=== PATIENT | male | born 1945 | race African-American/Black ===

== ENCOUNTER → 2019-02-01 | Day surgery (SDC) | payer OTHER ==
[~2019-02-01] MED LIST: ASPIR 8181 MG PO; ATORVASTATIN CA40 MG PO; COLACE100 MG PO; ESCITALOPRAM OX10 MG PO; HYDRALAZINE 2525 MG PO; MIRALAX17 GM PO; NORCO 5-325 TA1 EACH PO; PROCARDIA XL90 MG PO; RENAL CAPS SOFTG1 MG PO; SYNTHROID50 MCG PO; TUMS FRESHERS200 MG PO; VITAMIN D31000 UNIT PO; ZANTAC 150MG T150 MG PO
--- NOTE | ~2019-02-01 | PROC ---
[address] [place] [address] PROCEDURE REPORT Name: NOHELIA RIVERA Room: [facility]..#: [id number] Admission: 02/01/19 Attend Phys: Lester Aragon MD Discharge: Date of : 47 Report #: [id number] THIS REPORT FOR: //name// For GI report, please see the Provation report in Perceptive 7 content. By: 05Medical Records Staff TIM /INGRIS
[2019-02-01 09:50] LABS: HEMATOCRIT 34.4 % (42.0-52.0); HEMOGLOBIN 11.4 gm/dL (14.0-18.0); MCH 30.4 pg (26.0-34.0); MCHC 33.1 g/dL (28.0-37.0); MCV 91.7 fL (80.0-100.0); MPV 7.4 fl. (7.2-11.1); RBC 3.74 mil/uL (4.50-6.00); RDW-CV 14.2 % (10.5-14.5); WBC 5.3 thou/uL (4.0-11.0)
[2019-02-01 09:59] LABS: CALCIUM 8.5 mg/dL (8.5-10.1); POTASSIUM 4.3 mmol/L (3.5-5.1)
--- NOTE | 2019-02-01 10:55 | EKG ---
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1945 Requested By: Lester Aragon Order Number: [id number] Reading MD: Rj Humphries Measurements Intervals [place] Rate: 71 P: 77 PA: 377 QRS: -31 QRSD: 89 T: 53 QT: 439 QTc: 478 Interpretive Statements Sinus rhythm Prolonged PA interval Consider left atrial enlargement Probable left ventricular hypertrophy Borderline prolonged QT interval No previous ECG available for comparison Electronically Signed On 02-01-2019 10:55:08 CDT by Rj Humphries [email or web address] <ELECTRONICALLY SIGNED> By: Rj Humphries MD, [facility] 02/01/19 1055 0939 Rj Humphries MD, FAC /EPI
--- NOTE | 2019-02-04 16:06 | PATH ---
[address] [address] PATHOLOGY RPT PROCEDURE Name: NOHELIA CATALAN Room: [facility] M.R.#: [id number] Admission: 02/01/19 Date of : 47 Discharge: Report #: [id number] Path Case #: [id number] [facility] Accession Number: [id number] . 01 Material submitted: . colon - TRANSVERSE COLON BIOPSY. Modifiers: transverse . 01 Clinical history: . Colon screening . 02 Diagnosis: Transverse colon biopsy polyp: - Polypoid granulation tissue and scant benign colonic mucosa suggesting hyperplastic changes, negative for granulomas, viral inclusions and dysplasia/adenomatous change. (RASHEED:barney; 02/04/2019) MBR/02/04/2019 . 02 Electronically signed: . Ji Chapin MD, Pathologist NPI- [id number] . 01 Gross description: . Received in formalin labeled "Nohelia Catalan, transverse colon biopsy polyp," is a single segment of martin soft tissue measuring 0.4 cm in maximum dimension. The specimen is entirely submitted in cassette A1. (TSD; 02/01/2019) TOB/TOB . 02 Pathologist provided ICD-10: Z12.11 . 02 CPT . 870861 Specimen Comment: A courtesy copy of this report has been sent to Specimen Comment: [phone], . Specimen Comment: Report sent to / DR REZA Performed at: [address], [place] [id number] MD Chintan Gilbert MD Phone: [phone] Performed at: 02 [facility] [address], [place], [place] [id number] MD Ji Chapin MD Phone: [phone]
== END | disposition home or self-care (01) ==
LOC: M.SUR 06:32
PROVIDERS: Internal Medicine Gastroenterology
DX: Z12.11 Encounter for screening for malignant neoplasm of colon (principal); K63.5 Polyp of colon; K64.8 Other hemorrhoids; I12.0 Hypertensive chronic kidney disease with stage 5 chronic kidney disease or end stage renal disease; E11.22 Type 2 diabetes mellitus with diabetic chronic kidney disease; N18.6 End stage renal disease; E78.5 Hyperlipidemia, unspecified; E03.9 Hypothyroidism, unspecified; K21.9 Gastro-esophageal reflux disease without esophagitis; Z98.890 Other specified postprocedural states; Z79.899 Other long term (current) drug therapy; Z99.2 Dependence on renal dialysis; Z79.4 Long term (current) use of insulin; Z79.82 Long term (current) use of aspirin

== ENCOUNTER 2020-02-19 10:58 | Emergency (ER) | payer OTHER ==
[~2020-02-19] VITALS: Ht 170.2 cm; Wt 61.4 kg
[2020-02-19 12:32] VITALS: BP 128/65
== END 2020-02-19 12:33 | disposition home or self-care (01) ==
LOC: M.ERS 10:58
DX: S00.03XA Contusion of scalp, initial encounter (principal); S00.01XA Abrasion of scalp, initial encounter; I12.0 Hypertensive chronic kidney disease with stage 5 chronic kidney disease or end stage renal disease; N18.6 End stage renal disease; E78.5 Hyperlipidemia, unspecified; K21.9 Gastro-esophageal reflux disease without esophagitis; F32.9 Major depressive disorder, single episode, unspecified; E03.9 Hypothyroidism, unspecified; Z99.2 Dependence on renal dialysis; Z79.82 Long term (current) use of aspirin; Z79.899 Other long term (current) drug therapy; V49.60XA Unspecified car occupant injured in collision with unspecified motor vehicles in traffic accident, initial encounter; Y93.89 Activity, other specified; Y92.89 Other specified places as the place of occurrence of the external cause; Y99.8 Other external cause status

== ENCOUNTER 2020-05-15 09:03 | Inpatient (IN) | payer OTHER ==
[~2020-05-15] VITALS: Ht 170.2 cm; Wt 65.3 kg
[2020-05-15 09:11] VITALS: BP 141/73
[2020-05-15] MEDS ORDERED: DIPHENOXYLATE W60 M1 PO (09:21)
[2020-05-15 09:38] LABS: ABSOLUTE BASOPHILS 0.1 thou/uL (0.0-0.2); ABSOLUTE EOSINOPHILS 0.3 thou/uL (0.0-0.7); ABSOLUTE LYMPHOCYTES 1.3 thou/uL (0.8-5.3); ABSOLUTE MONOCYTES 0.2 thou/uL (0.0-1.2); ABSOLUTE NEUTROPHILS 2.5 thou/uL (1.6-8.1); BASOPHILS 1.3 %; EOSINOPHILS 7.1 %; HEMATOCRIT 38.9 % (42.0-52.0); HEMOGLOBIN 13.2 gm/dL (14.0-18.0); MCV 94.2 fL (80.0-100.0); MONOCYTES 5.7 %; MPV 7.9 fl. (7.2-11.1); NUCLEATED RBCS 0 /100WBC; PLATELET COUNT* 192 thou/uL (150-400); POLYS 56.9 %; RBC 4.13 mil/uL (4.50-6.00); RDW-CV 14.1 % (10.5-14.5); WBC 4.4 thou/uL (4.0-11.0)
[2020-05-15 09:48] LABS: APTT 27.3 Seconds (25.0-31.3); CALCIUM 7.7 mg/dL (8.5-10.1); CREATININE 7.7 mg/dL (0.6-1.3); POTASSIUM 4.4 mmol/L (3.5-5.1); PROTIME 10.8 Seconds (9.20-11.50)
[2020-05-15 10:01] LABS: TOTAL BILIRUBIN 0.4 mg/dL (<0.1-1.0); TOTAL PROTEIN 8.2 g/dL (6.4-8.2)
[2020-05-15 12:43] VITALS: BP 155/67
[2020-05-15 14:11] VITALS: BP 185/91
--- NOTE | 2020-05-15 15:02 | EKG ---
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1945 Requested By: Torin Ham Order Number: [id number] MD: Rj Humphries Measurements Intervals [place] Rate: 77 P: 0 OR: 274 QRS: -45 QRSD: 86 T: 90 QT: 440 QTc: 499 Interpretive Statements Second degree AV block, Mobitz I Left anterior fascicular block Anteroseptal infarct, old Baseline wander in lead(s) II,III,aVF,V2,V4 Compared to ECG 02/01/2019 second degree av block noted Electronically Signed On 05-15-2020 15:02:26 CDT by Rj Humphries [email or web address] <ELECTRONICALLY SIGNED> By: jR Humphries MD, [facility] 05/15/20 1502 6 6 Rj Humphries MD, [facility] /EPI
--- NOTE | 2020-05-15 17:09 | 2DMMODE ---
[place] [address] 2 D/M-MODE ECHOCARDIOGRAM Name: NOHELIA RIVERA Room: [address] Joni#: [id number] Admission: 05/15/20 Attend Phys: Td Glover Discharge: Date of : 47 Date of Service: 05/15/20 1709 Report #: [id number] THIS REPORT FOR: cc: Chintan Leone,Chintan Fernandez,Rj Dougherty MD [facility] ~ APPROVED REPORT Study performed: 05/15/2020 14:04:39 EXAM: Comprehensive 2D, Doppler, and color-flow Echocardiogram Patient Location: In-Patient Room #: [facility] Status: routine BSA: 1.70 HR: 70 bpm BP: 155/67 mmHg Other Information Study Quality: Good Indications Syncope 2D Dimensions IVSd: 12.89 (7-11mm) LVOT Diam: 20.07 (18-24mm) LVDd: 33.29 mm PWd: 11.23 (7-11mm) Ascending Ao: 34.48 (22-36mm) LVDs: 21.74 (25-40mm) Aortic Root: 32.67 mm Volumes Left Atrial Volume (Systole) LA ESV Index: 36.60 mL/m2 Aortic Valve AoV Peak Jesse.: 0.86 m/s AO Peak Gr.: 2.98 mmHg LVOT Max P.28 mmHg AO Mean Gr.: 1.59 mmHg LVOT Mean P.15 mmHg LVOT Max V: 0.75 m/s AO V2 VTI: 15.11 cm LVOT Mean V: 0.49 m/s NAM (VTI): 3.35 cm2 LVOT V1 VTI: 16.02 [place] [address] 2 D/M-MODE ECHOCARDIOGRAM Name: NOHELIA RIVERA Room: [address]#: [id number] Admission: 05/15/20 Attend Phys: Td Glover Discharge: Date of : 47 Date of Service: 05/15/20 1709 Report #: [id number] PV Peak Jesse.: 0.78 m/s PV Peak Gr.: 2.45 mmHg Tricuspid Valve RAP Estimate: 5.00 mmHg TR Peak Gr.: 21.91 mmHg RVSP: 26.00 mmHg PA Pressure: 26.00 mmHg Left Ventricle The left ventricle is normal size. There is normal LV segmental wall motion. Mild concentric left ventricular hypertrophy. Left ventricular systolic function is normal. The left ventricular ejection fraction is within the normal range. LVEF is 60-65%. This study is not technically sufficient to allow evaluation of the LV diastolic function due to heart rhythm. Right Ventricle The right ventricle is normal size. The right ventricular systolic function is normal. Atria Left atrium is mildly dilated. The right atrium size is normal. Aortic Valve Mild aortic valve sclerosis. No aortic regurgitation is present. There is no aortic valvular stenosis. Mitral Valve The mitral valve is normal in structure. There is no mitral valve regurgitation noted. No evidence of mitral valve stenosis. Tricuspid Valve The tricuspid valve is normal in structure. Trace tricuspid regurgitation. No pulmonary hypertension. Pulmonic Valve The pulmonary valve is normal in structure. There is no pulmonic valvular regurgitation. Great Vessels The aortic root is normal in size. IVC is normal in size and collapses >50% with inspiration. Pericardium There is [place] [address] 2 D/M-MODE ECHOCARDIOGRAM Name: NOHELIA RIVERA Room: [address] Joni#: [id number] Admission: 05/15/20 Attend Phys: Td Glover Discharge: Date of : 47 Date of Service: 05/15/201708 Report #: [id number] <Conclusion> Mild concentric left ventricular hypertrophy. LVEF is 60-65%. Left atrium is mildly dilated. Mild aortic valve sclerosis. <ELECTRONICALLY SIGNED> By: Rj Humhpries MD, [facility] 05/15/201708 08 08 Rj Humphries MD, FACC /INF
[2020-05-15 18:13] VITALS: BP 155/83
[2020-05-15 19:40] VITALS: BP 131/57
[2020-05-16] VITALS (7 sets, daily range): BP systolic 90–143; BP diastolic 54–73
[2020-05-16 04:58] LABS: ABSOLUTE BASOPHILS 0.1 thou/uL (0.0-0.2); ABSOLUTE EOSINOPHILS 0.3 thou/uL (0.0-0.7); ABSOLUTE LYMPHOCYTES 1.8 thou/uL (0.8-5.3); ABSOLUTE MONOCYTES 0.4 thou/uL (0.0-1.2); ABSOLUTE NEUTROPHILS 2.7 thou/uL (1.6-8.1); EOSINOPHILS 6.7 %; HEMATOCRIT 36.8 % (42.0-52.0); HEMOGLOBIN 12.4 gm/dL (14.0-18.0); LYMPHOCYTES 33.4 %; MCH 31.7 pg (26.0-34.0); MCHC 33.7 g/dL (28.0-37.0); MCV 94.1 fL (80.0-100.0); MONOCYTES 7.4 %; MPV 8.6 fl. (7.2-11.1); NUCLEATED RBCS 0 /100WBC; PLATELET COUNT* 164 thou/uL (150-400); POLYS 51.5 %; RBC 3.91 mil/uL (4.50-6.00); RDW-CV 14.1 % (10.5-14.5); WBC 5.3 thou/uL (4.0-11.0)
[2020-05-16 05:18] LABS: ALBUMIN 3.4 g/dL (3.4-5.0); CALCIUM 7.9 mg/dL (8.5-10.1); POTASSIUM 4.4 mmol/L (3.5-5.1); TOTAL BILIRUBIN 0.4 mg/dL (<0.1-1.0); TOTAL PROTEIN 7.1 g/dL (6.4-8.2)
[2020-05-16 05:35] LABS: CREATININE 5.6 mg/dL (0.6-1.3)
[2020-05-17] VITALS (9 sets, daily range): BP systolic 102–148; BP diastolic 51–86
[2020-05-17 05:52] LABS: ABSOLUTE BASOPHILS 0.1 thou/uL (0.0-0.2); ABSOLUTE EOSINOPHILS 0.2 thou/uL (0.0-0.7); ABSOLUTE LYMPHOCYTES 1.8 thou/uL (0.8-5.3); ABSOLUTE MONOCYTES 0.4 thou/uL (0.0-1.2); ABSOLUTE NEUTROPHILS 3.9 thou/uL (1.6-8.1); BASOPHILS 1.3 %; EOSINOPHILS 3.7 %; HEMATOCRIT 36.5 % (42.0-52.0); HEMOGLOBIN 12.4 gm/dL (14.0-18.0); LYMPHOCYTES 27.9 %; MCH 31.7 pg (26.0-34.0); MCV 93.2 fL (80.0-100.0); MONOCYTES 5.6 %; MPV 8.5 fl. (7.2-11.1); NUCLEATED RBCS 0 /100WBC; PLATELET COUNT* 177 thou/uL (150-400); POLYS 61.5 %; RBC 3.92 mil/uL (4.50-6.00); RDW-CV 13.7 % (10.5-14.5); WBC 6.4 thou/uL (4.0-11.0)
[2020-05-17 06:13] LABS: ALBUMIN 3.4 g/dL (3.4-5.0); CALCIUM 7.8 mg/dL (8.5-10.1); TOTAL BILIRUBIN 0.4 mg/dL (<0.1-1.0); TOTAL PROTEIN 7.1 g/dL (6.4-8.2)
[2020-05-17 06:15] LABS: CREATININE 7.5 mg/dL (0.6-1.3)
[2020-05-18] VITALS (10 sets, daily range): BP systolic 062–162; BP diastolic 56–85
[2020-05-18 04:48] LABS: ABSOLUTE BASOPHILS 0.1 thou/uL (0.0-0.2); ABSOLUTE EOSINOPHILS 0.1 thou/uL (0.0-0.7); ABSOLUTE MONOCYTES 0.4 thou/uL (0.0-1.2); ABSOLUTE NEUTROPHILS 5.1 thou/uL (1.6-8.1); BASOPHILS 1.1 %; EOSINOPHILS 1.5 %; HEMATOCRIT 35.7 % (42.0-52.0); HEMOGLOBIN 12.3 gm/dL (14.0-18.0); LYMPHOCYTES 14.7 %; MCH 32.1 pg (26.0-34.0); MCHC 34.4 g/dL (28.0-37.0); MCV 93.4 fL (80.0-100.0); MONOCYTES 6.2 %; MPV 8.5 fl. (7.2-11.1); NUCLEATED RBCS 0 /100WBC; PLATELET COUNT* 190 thou/uL (150-400); POLYS 76.5 %; RBC 3.83 mil/uL (4.50-6.00); WBC 6.6 thou/uL (4.0-11.0)
[2020-05-18 04:59] LABS: ALBUMIN 3.4 g/dL (3.4-5.0); CALCIUM 7.4 mg/dL (8.5-10.1); POTASSIUM 4.9 mmol/L (3.5-5.1); TOTAL BILIRUBIN 0.4 mg/dL (<0.1-1.0); TOTAL PROTEIN 7.1 g/dL (6.4-8.2)
[2020-05-18 05:10] LABS: CREATININE 8.6 mg/dL (0.6-1.3)
[2020-05-18] MEDS ORDERED: MIDODRINE HCL 55 M1 PO ×2 (08:32→13:33)
[2020-05-18] MEDS ORDERED: HYDRALAZINE 2525 MG PO ×2 (08:32→13:33)
--- NOTE | 2020-05-18 14:39 | CON ---
[address] [address] CONSULTATION Name: NOHELIA RIVERA Room: [address] IN M.R.#: [id number] Admission: 05/16/20 Attend Phys: Caitlyn Jones Discharge: Date of : 47 Report #: [id number] THIS REPORT FOR: //name// cc: Chintan Leone Russell J. DO ~ THIS REPORT FOR: //name// CC: Chintan Glover NEPHROLOGY CONSULTATION CONSULTING PHYSICIAN: Td Glover DO REASON FOR CONSULTATION: End-stage kidney disease. HISTORY OF PRESENT ILLNESS: A 74-year-old gentleman admitted with a fainting spell. He had a similar spell last week. Today it happened before he had any dialysis. He was scheduled for dialysis later this afternoon. He has had some similar episode in the past. He did not miss a meal and did not have any recent changes to his medications that he recalls. He did not suffer any injury or fall as a result of this. Appears to be comfortable at present time and does not have any complaints. Cardiology has been consulted. REVIEW OF SYSTEMS: Constitutional, psych, heme, eyes, ENT, respiratory, cardiac, GI, , endocrine, all negative except as documented above. PAST MEDICAL HISTORY: End-stage kidney disease, on hemodialysis Monday, Monday and Monday. He has been hospitalized previously at [facility], dyslipidemia, hypertension, hypothyroidism, GERD, depression. FAMILY HISTORY: Not pertinent in this 74-year-old gentleman. SOCIAL HISTORY: No tobacco. CURRENT MEDICATIONS: Reviewed. PHYSICAL EXAMINATION: VITAL SIGNS: Blood pressure 134/51, pulse 50, respirations 16, temperature 36.3. GENERAL: No acute distress. EYES: Open. EARS: Externally normal. NECK: Supple. CARDIOVASCULAR: Bradycardic. LUNGS: Diminished breath sounds. ABDOMEN: [place] [address] CONSULTATION Name: NOHELIA RIVERA Room: [address] IN [facility].#: [id number] Admission: 05/16/20 Attend Phys: Caitlyn Jones Discharge: Date of : 47 Report #: [id number] MUSCULOSKELETAL: Nontender. PSYCHIATRIC: Awake, alert. LABORATORY DATA: White cell count 4.4, hemoglobin 13.2, platelets 192. Sodium 136, potassium 4.4, chloride 97, bicarbonate 30, BUN 56, creatinine 7.7, glucose 152, calcium 7.7, albumin 4. ASSESSMENT: 1. End-stage kidney disease, on hemodialysis Monday, Monday and Monday at the [facility]. 2. Syncopal episode. 3. Dyslipidemia. 4. History of hypertension. 5. Vitamin D deficiency. PLAN: We will perform maintenance dialysis today. Cardiology evaluation has been ordered to evaluate for possible causes of his syncopal episode. We will follow for dialysis needs and continue with maintenance dialysis. Please call with any questions in the interim. Thank you for requesting my opinion in the care and management of this patient. <ELECTRONICALLY SIGNED> By: Yrn Bob MD 05/18/20 1439 1121 [id number] oBb MD /nt
[2020-05-19] VITALS: BP 107/54
[2020-05-19 04:00] VITALS: BP 106/66
[2020-05-19 08:02] VITALS: BP 122/80
[2020-05-19] MEDS ORDERED: MIDODRINE HCL10 MG PO (09:23)
[2020-05-19 12:31] VITALS: BP 131/70; BP 95/61; BP 97/57
== END 2020-05-19 13:04 | disposition home or self-care (01) | DRG 73 ==
LOC: M.ERS 09:03 → M.TBA-ER 09:55 → M.2W 09:55
PROVIDERS: Family Medicine; ADMIT Internal Medicine; ATTEND Internal Medicine
PROC: 5A1D70Z Performance of Urinary Filtration, Intermittent, Less than 6 Hours Per Day (ICD-10-PCS; principal; 2020-05-16)
PROC: 5A1D70Z Performance of Urinary Filtration, Intermittent, Less than 6 Hours Per Day (ICD-10-PCS; 2020-05-18)
DX: G90.9 Disorder of the autonomic nervous system, unspecified (principal); N18.6 End stage renal disease; I13.2 Hypertensive heart and chronic kidney disease with heart failure and with stage 5 chronic kidney disease, or end stage renal disease; I50.32 Chronic diastolic (congestive) heart failure; I44.1 Atrioventricular block, second degree; K21.9 Gastro-esophageal reflux disease without esophagitis; I95.1 Orthostatic hypotension; E11.22 Type 2 diabetes mellitus with diabetic chronic kidney disease; E11.43 Type 2 diabetes mellitus with diabetic autonomic (poly)neuropathy; E55.9 Vitamin D deficiency, unspecified; F32.9 Major depressive disorder, single episode, unspecified; E03.9 Hypothyroidism, unspecified; E78.5 Hyperlipidemia, unspecified; Z20.828 Contact with and (suspected) exposure to other viral communicable diseases; Z79.82 Long term (current) use of aspirin; Z79.899 Other long term (current) drug therapy; Z99.2 Dependence on renal dialysis

== ENCOUNTER 2020-05-25 08:38 | Inpatient (IN) | payer OTHER ==
[~2020-05-25] VITALS: Ht 170.2 cm; Wt 65.3 kg
[~2020-05-25 08:38] MED LIST changes: +DIPHENOXYLATE W60 M1 PO; +MIDODRINE HCL 55 M1 PO; +MIDODRINE HCL10 MG PO
[2020-05-25 08:47] VITALS: BP 163/91
[2020-05-25 09:46] LABS: ABSOLUTE BASOPHILS 0.1 thou/uL (0.0-0.2); ABSOLUTE EOSINOPHILS 0.3 thou/uL (0.0-0.7); ABSOLUTE LYMPHOCYTES 1.6 thou/uL (0.8-5.3); ABSOLUTE MONOCYTES 0.3 thou/uL (0.0-1.2); ABSOLUTE NEUTROPHILS 4.8 thou/uL (1.6-8.1); BASOPHILS 0.9 %; EOSINOPHILS 3.7 %; HEMATOCRIT 37.8 % (42.0-52.0); HEMOGLOBIN 12.8 gm/dL (14.0-18.0); LYMPHOCYTES 23.2 %; MCH 32.2 pg (26.0-34.0); MCHC 33.8 g/dL (28.0-37.0); MCV 95.2 fL (80.0-100.0); MONOCYTES 4.8 %; MPV 7.5 fl. (7.2-11.1); NUCLEATED RBCS 0 /100WBC; PLATELET COUNT* 244 thou/uL (150-400); POLYS 67.4 %; RBC 3.97 mil/uL (4.50-6.00); RDW-CV 13.8 % (10.5-14.5); WBC 7.1 thou/uL (4.0-11.0)
[2020-05-25 09:54] LABS: CALCIUM 8.9 mg/dL (8.5-10.1); CREATININE 9.1 mg/dL (0.6-1.3); POTASSIUM 5.2 mmol/L (3.5-5.1)
[2020-05-25 10:04] LABS: ALBUMIN 3.6 g/dL (3.4-5.0); TOTAL BILIRUBIN 0.5 mg/dL (<0.1-1.0); TOTAL PROTEIN 7.7 g/dL (6.4-8.2)
[2020-05-25 10:39] LABS: APTT 27.5 Seconds (25.0-31.3); INR 1.1; PROTIME 11.4 Seconds (9.20-11.50)
[2020-05-25 14:00] VITALS: BP 151/97
--- NOTE | 2020-05-25 15:03 | EKG ---
[place] [address] ELECTROCARDIOGRAM REPORT Name: NOHELIA RIVERA Room: [place] [address] ADM IN [facility].#: [id number] Admission: 05/25/20 Attend Phys: Td Glover Discharge: Date of : 47 Date of Service: 05/25/20 0900 Report #: [id number] THIS REPORT FOR: //name// [facility] ED Test Date: 2020-05-25 Test Time: 09:00:53 Pat Name: NOHELIA RIVERA Department: Room: [facility] Gender: M Lan Analyst: CCD : 1945 Requested By: William Aviles Order Number: [id number] MD: Wilian Iqbal Measurements Intervals [place] Rate: 85 P: 0 ME: 133 QRS: -59 QRSD: 84 T: 66 QT: 436 QTc: 519 Interpretive Statements Sinus rhythm with first-degree AV block with occasional blocked P wave Left anterior fascicular block Anteroseptal infarct, age indeterminate Prolonged QT interval Compared to ECG 05/15/2020 09:07:01 Blocked P waves are less frequent Prolonged QT interval now present Myocardial infarct finding still present Electronically Signed On 05-25-2020 15:03:31 CDT by Wilian Iqbal [email or web address] <ELECTRONICALLY SIGNED> By: Wilian Iqbal MD, [facility] 05/25/20 1503 9 09 Wilian Iqbal MD, [facility] /EPI
[2020-05-25 15:36] VITALS: BP 211/106
[2020-05-25 20:00] VITALS: BP 137/70
[2020-05-26 00:30] VITALS: BP 110/58
[2020-05-26 02:06] LABS: GLYCOHEMOGLOBIN (HGB A1C) 5.5 % (4.8-5.6)
[2020-05-26 04:30] VITALS: BP 114/64
[2020-05-26 05:12] LABS: ABSOLUTE BASOPHILS 0.1 thou/uL (0.0-0.2); ABSOLUTE EOSINOPHILS 0.2 thou/uL (0.0-0.7); ABSOLUTE LYMPHOCYTES 1.5 thou/uL (0.8-5.3); ABSOLUTE MONOCYTES 0.3 thou/uL (0.0-1.2); ABSOLUTE NEUTROPHILS 2.9 thou/uL (1.6-8.1); BASOPHILS 1.8 %; HEMATOCRIT 37.5 % (42.0-52.0); LYMPHOCYTES 28.9 %; MCH 32.3 pg (26.0-34.0); MCHC 34.8 g/dL (28.0-37.0); MCV 92.8 fL (80.0-100.0); MONOCYTES 6.6 %; MPV 7.5 fl. (7.2-11.1); NUCLEATED RBCS 0 /100WBC; PLATELET COUNT* 245 thou/uL (150-400); POLYS 57.7 %; RBC 4.04 mil/uL (4.50-6.00); RDW-CV 13.9 % (10.5-14.5)
--- NOTE | 2020-05-26 05:15 | NUR ---
PT ADMITTED TO FLOOR FROM DIALYSIS HE REQUIRED TREATMENT DIRECTLY FROM ER. ASSESSMENTS COMPLETED AT BEDSIDE, PLEASE REFER TO CHARTING FOR DETAILS. MEDICATIONS ADMINISTERED PER MAR. PT IS A HIGH FALL RISK D/T RECENT FALLS AND HAS BEEN PLACED ON BEDREST. BED ALARM IS ON AND CALL LIGHT WITHIN REACH. HOURLY ROUNDING IN PLACE FOR PT SAFETY. NO C/O PAIN OR DISCOMFORT NOTED.
[2020-05-26 05:32] LABS: CHOLESTEROL 153 mg/dL (<200); HDL CHOLESTEROL 35 mg/dL (>40); LDL CHOLESTEROL 102 mg/dL (<100); TC:HDL 4.4 Ratio (Not establshd); TRIGLYCERIDE 82 mg/dL (<150); VLDL 16 mg/dL (<40)
[2020-05-26 05:33] LABS: ALBUMIN 3.4 g/dL (3.4-5.0); CALCIUM 8.7 mg/dL (8.5-10.1); POTASSIUM 4.3 mmol/L (3.5-5.1); SERUM ASSESSMENT Clear; TOTAL BILIRUBIN 0.4 mg/dL (<0.1-1.0); TOTAL PROTEIN 7.6 g/dL (6.4-8.2)
[2020-05-26 05:40] LABS: CREATININE 6.2 mg/dL (0.6-1.3)
--- NOTE | 2020-05-26 09:47 | NUR ---
cm completed initial assessment to discuss d/c planning. cm reviewed chart: pt uses [facility], MWF seat time. Pt has 0 hx w/snf or hh. pt lives at [facility] in independent living per Nicole (front desk administrator). [facility] is able to provide transortation need be. pt stated he has a walker. pt stated he "used o be active...not as much." cm to cont to follow.
--- NOTE | 2020-05-26 11:32 | NUR ---
REPORT GIVEN TO CIRO ODEN
[2020-05-26 12:11] VITALS: BP 121/69
--- NOTE | 2020-05-26 14:08 | NUR ---
Cardiac Rehab. Stroke education completed with receptive patient and daughter using the Stroke patient education folder. Discussed were signs and symptoms of stroke, when to call 911, using the word Stroke when talking with sweep press operator, personal risk factor reduction. All questions answered to patient and daughter's satisfaction.
--- NOTE | 2020-05-26 14:59 | 2DMMODE ---
[place] [address] 2 D/M-MODE ECHOCARDIOGRAM Name: NOHELIA RIVERA Room: [address] IN [facility]#: [id number] Admission: 05/25/20 Attend Phys: Td Glover Discharge: Date of : 47 Date of Service: 05/26/20 1458 Report #: [id number] THIS REPORT FOR: cc: Chintan Leone Russell J. DO Liston, Michael J. MD [facility] ~ APPROVED REPORT Study performed: 05/26/2020 11:10:40 EXAM: Limited 2D Echocardiogram Patient Location: In-Patient Room #: 220 Status: routine BSA: 1.71 HR: 62 bpm BP: 114/64 mmHg Rhythm: NSR Other Information Study Quality: Good Indications CVA/TIA Echo Enhancing Agent Indication: Rule out Shunt Agent(s) / Amount(s) Used: Agitated Saline 10 cc Left Ventricle The left ventricle is normal size. There is normal LV segmental wall motion. Mild concentric left ventricular hypertrophy. The left ventricular systolic function is normal. LVEF is 65-70%. Right Ventricle The right ventricle is normal size. The right ventricular systolic function is normal. Atria The left atrium size is normal. The interatrial septum is intact with no evidence for an atrial septal defect. The right atrium size is normal. Aortic Valve [place] [address] 2 D/M-MODE ECHOCARDIOGRAM Name: NOHELIA RIVERA Room: [address] IN .R.#: [id number] Admission: 05/25/20 Attend Phys: Td Glover Discharge: Date of : 47 Date of Service: 05/26/20 1458 Report #: [id number] Mitral Valve The mitral valve is normal in structure. Tricuspid Valve The tricuspid valve is normal in structure. Pulmonic Valve The pulmonary valve is normal in structure. Great Vessels The aortic root is normal in size. IVC is normal in size and collapses >50% with inspiration. Pericardium There is no pericardial effusion. <Conclusion> The left ventricle is normal size. Mild concentric left ventricular hypertrophy. The left ventricular systolic function is normal. LVEF is 65-70%. The interatrial septum is intact with no evidence for an atrial septal defect. Mild aortic valve sclerosis. IVC is normal in size and collapses >50% with inspiration. <ELECTRONICALLY SIGNED> By: Paulo [place] MD, [facility] 05/26/20 1458 1458 1458 Paulo Hernandez MD, FACC /INF
[2020-05-26 15:57] VITALS: BP 150/61
[2020-05-26 20:00] VITALS: BP 150/57
[2020-05-27] VITALS: BP 123/63
[2020-05-27 04:00] VITALS: BP 141/88
--- NOTE | 2020-05-27 04:33 | NUR ---
ASSESSMENT COMPLETED AT BEDSIDE, PLEASE REFER TO CHARTING FOR DETAILS. MEDICATIONS ADMINISTERED PER MAR. NO C/O PAIN OR DISCOMFORT REPORTED BY PT. HR IN 40'S WHILE PT ASLEEP.HOURLY ROUNDING IN PLACE FOR SAFETY, CALL LIGHT WITHIN REACH.
[2020-05-27 05:22] LABS: ABSOLUTE BASOPHILS 0.1 thou/uL (0.0-0.2); ABSOLUTE EOSINOPHILS 0.3 thou/uL (0.0-0.7); ABSOLUTE LYMPHOCYTES 2.3 thou/uL (0.8-5.3); ABSOLUTE MONOCYTES 0.4 thou/uL (0.0-1.2); ABSOLUTE NEUTROPHILS 2.7 thou/uL (1.6-8.1); BASOPHILS 1.2 %; EOSINOPHILS 5.6 %; LYMPHOCYTES 39.6 %; MCH 32.2 pg (26.0-34.0); MCHC 34.3 g/dL (28.0-37.0); MCV 93.9 fL (80.0-100.0); MONOCYTES 6.6 %; MPV 7.5 fl. (7.2-11.1); NUCLEATED RBCS 0 /100WBC; PLATELET COUNT* 249 thou/uL (150-400); RBC 3.73 mil/uL (4.50-6.00); RDW-CV 13.8 % (10.5-14.5); WBC 5.8 thou/uL (4.0-11.0)
[2020-05-27 05:50] LABS: ALBUMIN 3.3 g/dL (3.4-5.0); CALCIUM 8.3 mg/dL (8.5-10.1); POTASSIUM 4.6 mmol/L (3.5-5.1); TOTAL BILIRUBIN 0.3 mg/dL (<0.1-1.0); TOTAL PROTEIN 7.1 g/dL (6.4-8.2)
[2020-05-27 05:52] LABS: CREATININE 7.7 mg/dL (0.6-1.3)
[2020-05-27 08:00] VITALS: BP 169/91
[2020-05-27 10:43] VITALS: BP 169/91
[2020-05-27 12:59] VITALS: BP 157/83
[2020-05-27 20:00] VITALS: BP 116/68
[2020-05-28] VITALS: BP 111/63
[2020-05-28 04:00] VITALS: BP 120/70
[2020-05-28 08:00] VITALS: BP 154/87
[2020-05-28 11:24] VITALS: BP 119/73
[2020-05-28 16:32] VITALS: BP 171/84
--- NOTE | 2020-05-28 18:46 | CON ---
[address] [address] CONSULTATION Name: NOHELIA RIVERA Room: [address] IN M.R.#: [id number] Admission: 05/25/20 Attend Phys: Caitlyn Jones Discharge: Date of : 47 Report #: [id number] THIS REPORT FOR: //name// cc: Chintan Leone Russell J. DO ~ THIS REPORT FOR: //name// CC: Chintan Glover DATE OF SERVICE: 05/25/2020 HISTORY OF PRESENT ILLNESS: This is a 74-year-old male patient who was seen by me in Emergency Room. I talked to Dr. Aviles, the Emergency Room physician and this patient is admitted with shortness of breath. He feels weak all over the body. He had some nausea. He was in the hospital recently and those records were reviewed. REVIEW OF SYSTEMS: A 14-point review of system was carried out. This patient has end-stage renal disease and he is on dialysis. He has visual disturbances, but that is a longstanding according to the family. He is having some difficulty with swallowing because he says he says that he has sore throat. He can still move everything, but he just feels fatigued. He is not having any chest symptoms, but he is having some shortness of breath. He does have kidney failure. He does have some nausea. He does not have any significant constitutional symptoms. He denies any new musculoskeletal, dermatological, hematological, psychiatric, throat, allergic symptom associated with present symptomatology. PAST MEDICAL HISTORY: Positive for end-stage renal disease and recent admissions to the hospital. FAMILY HISTORY: Unremarkable. SOCIAL HISTORY: This patient has a supporting family. I did not ask her the relationship, but I think his daughter was there. He does not drink any alcohol. PHYSICAL EXAMINATION: His examination indicate he is alert. He can respond. His speech looks intact. His memory and fund of knowledge is somewhat diminished, but I think it is his baseline. Cranial nerve examination 2-12 was attempted. He has pretty significant visual problems, but that is his baseline. I do not think there is any other definite problems I can identify. He moves all four extremities and motor examination looks symmetrical. He says he can feel on both sides. His reflexes are diminished, but that is probably because of his end-stage renal disease. His pulses [place] [address] CONSULTATION Name: NOHELIA RIVERA Room: [address]#: [id number] Admission: 05/25/20 Attend Phys: aCitlyn Jones Discharge: Date of : 47 Report #: [id number] is mute. His cardiac examinations appear unremarkable. I did not see any marked respiratory difficulty, but he feels short of breath. I could not look at his fundus. He has no meningeal sign. He has no neck stiffness. No thyroid mass was noticed. Blood pressure is 164/97, respirations 18, pulse is 69, temperature is 97.1. LABORATORY DATA: White count is normal at 7.1. Potassium is trace high. Creatinine is 9.1 and his TSH is normal. His CT scan was done that showed a question of new stroke, but CT is not very specific and he needs an MRI. I talked to him and he has no contraindication for MRI. IMPRESSION: 1. Generalized weakness, does not appear to be from neurological etiology, but his CT scan of the head does demonstrate a new finding. I will suggest the workup of systemic problem for a cause of generalized fatigue, but I will get an MRI and MRA as an initial test to see what the MRI shows. We will follow up with you and depending upon the patient's MRI we will do further workup. That is all discussed with the patient and the family. They want to follow this plan. Thank you very much for this referral. We will follow the patient along with you. <ELECTRONICALLY SIGNED> By: Song Landry MD 05/28/20 1846 1353 1430Song Landry MD /nt
[2020-05-29] VITALS (18 sets, daily range): BP systolic 115–170; BP diastolic 51–88
[2020-05-29 05:18] LABS: ABSOLUTE BASOPHILS 0.1 thou/uL (0.0-0.2); ABSOLUTE EOSINOPHILS 0.3 thou/uL (0.0-0.7); ABSOLUTE LYMPHOCYTES 1.9 thou/uL (0.8-5.3); ABSOLUTE MONOCYTES 0.4 thou/uL (0.0-1.2); ABSOLUTE NEUTROPHILS 2.3 thou/uL (1.6-8.1); BASOPHILS 1.5 %; EOSINOPHILS 5.9 %; HEMATOCRIT 37.5 % (42.0-52.0); HEMOGLOBIN 12.8 gm/dL (14.0-18.0); LYMPHOCYTES 38.3 %; MCH 32.1 pg (26.0-34.0); MCHC 34.2 g/dL (28.0-37.0); MCV 93.8 fL (80.0-100.0); MONOCYTES 7.7 %; MPV 7.3 fl. (7.2-11.1); NUCLEATED RBCS 0 /100WBC; PLATELET COUNT* 254 thou/uL (150-400); POLYS 46.6 %; RDW-CV 13.9 % (10.5-14.5)
[2020-05-29 05:24] LABS: CALCIUM 8.3 mg/dL (8.5-10.1); CREATININE 7.8 mg/dL (0.6-1.3); POTASSIUM 4.7 mmol/L (3.5-5.1)
--- NOTE | 2020-05-29 11:08 | NUR ---
Patient attends outpatient HD at [facility] on at 10:[address] [facility].
--- NOTE | 2020-05-29 11:20 | NUR ---
CM INFORMED DURING PRIME ROUNDING OF PLAN FOR PT TO HAVE T.E.E AND DIALYSIS TODAY. PT INSURANCE AUTH STILL PENDING FOR INPT REHAB POSSIBLY TODAY. CM WILL REMAIN AVAILABLE TO ASSIST AND FOLLOW NEEDED.
[2020-05-29] MEDS ORDERED: PERCOCET 5-3251 EACH PO (11:54)
--- NOTE | 2020-05-29 17:32 | TEE ---
[place] [address] TRANSESOPHAGEAL ECHOCARDIOGRAM Name: NOHELIA RIVERA Room: [address] IN [facility]#: [id number] Admission: 05/25/20 Attend Phys: Td Glover Discharge: Date of : 47 Date of Service: 05/29/20 1732 Report #: [id number] THIS REPORT FOR: cc: Chintan Leone Russell J. DO Blick, David R. MD [facility] ~ APPROVED REPORT Study performed: 05/29/2020 09:18:03 EXAM: Transesophageal Echocardiogram Patient Location: CVL BSA: 1.76 HR: 84 bpm BP: 170/86 mmHg Other Information Study Quality: Good Indications CVA/TIA Echo Enhancing Agent Indication: Rule Out Septal Defect Agent(s) / Amount(s) Used: Agitated Saline cc Procedure After obtaining informed consent, patient underwent transesophageal echo in the [employer]. Type of Sedation : Conscious Sedation Sedation was administered by Regina Chua RN. Sedation start time: 9:40 Case end Time: 10:05 Sedation was achieved intravenously with: Transesophageal probe was inserted and advanced into esophagus without difficulty by Rj Humphries MD, FACC. Echo enhancement indication: R/O Septal defect. Echo enhancement agent administered: Agitated Saline The LURDES was performed without complications. Throughout the procedure, the blood pressure, pulse oximetry, cardiac rhythm, and rate were monitored. The patient tolerated the procedure without adverse effects. Recovery from conscious sedation was uneventful and [place] [address] TRANSESOPHAGEAL ECHOCARDIOGRAM Name: NICOLENOHELIAMIKEY MCCALLUM Room: [address] IN [facility]#: [id number] Admission: 05/25/20 Attend Phys: Td Glover Discharge: Date of : 47 Date of Service: 05/29/20 1732 Report #: [id number] Left Ventricle The left ventricle is normal size. There is normal LV segmental wall motion. Mild concentric left ventricular hypertrophy. The left ventricular systolic function is normal. The left ventricular ejection fraction is within the normal range. LVEF is 60-65%. Right Ventricle The right ventricle is normal size. The right ventricular systolic function is normal. Atria The left atrium size is normal. no thrombus noted in the left atrial appendage Injection of bubbles documented no interatrial shunt. The right atrium size is normal. Aortic Valve The Aortic valve is sclerotic. No aortic regurgitation is present. There is no aortic valvular stenosis. Mitral Valve The mitral valve is normal in structure. Mild mitral regurgitation. No evidence of mitral valve stenosis. Tricuspid Valve The tricuspid valve is normal in structure. There is no tricuspid valve regurgitation noted. Pulmonic Valve The pulmonary valve is normal in structure. There is no pulmonic valvular regurgitation. Great Vessels The aortic root is normal in size. Pericardium There is no pericardial effusion. <Conclusion> Mild concentric left ventricular hypertrophy. LVEF is 60-65%. The Aortic valve is sclerotic. The left atrium size is normal. no thrombus noted in the [place] [address] TRANSESOPHAGEAL ECHOCARDIOGRAM Name: SHERLEYMARIA INESNOHELIA Room: [address] IN [facility].#: [id number] Admission: 05/25/20 Attend Phys: Td Glover Discharge: Date of : 47 Date of Service: 05/29/201731 Report #: [id number] Mild mitral regurgitation. Injection of bubbles documented no interatrial shunt. <ELECTRONICALLY SIGNED> By: Rj Humphries MD, FACC 05/29/201731 31 31 Rj Humphries MD, FACC /INF
--- NOTE | 2020-05-29 17:52 | NUR ---
ORDER REVEIVED TO DISCHARGE TO REHAB AFTER DIALYSIS IS COMPLETED FOR THE DAY. DC TIME OF 17:55.
== END 2020-05-29 17:59 | DRG 64 ==
LOC: M.ERS 08:38 → M.2W 10:12 → M.TBA-ER 10:12 → M.2W 19:58
PROVIDERS: Emergency Medicine Emergency Medical Services; Internal Medicine Nephrology; ADMIT Internal Medicine; ATTEND Internal Medicine
PROC: 5A1D70Z Performance of Urinary Filtration, Intermittent, Less than 6 Hours Per Day (ICD-10-PCS; principal; 2020-05-27)
PROC: B24BZZ4 Ultrasonography of Heart with Aorta, Transesophageal (ICD-10-PCS; 2020-05-29)
DX: I63.89 Other cerebral infarction (principal); N18.6 End stage renal disease; I50.33 Acute on chronic diastolic (congestive) heart failure; G93.41 Metabolic encephalopathy; I13.2 Hypertensive heart and chronic kidney disease with heart failure and with stage 5 chronic kidney disease, or end stage renal disease; N39.0 Urinary tract infection, site not specified; E03.9 Hypothyroidism, unspecified; F32.9 Major depressive disorder, single episode, unspecified; K21.9 Gastro-esophageal reflux disease without esophagitis; E87.5 Hyperkalemia; E78.5 Hyperlipidemia, unspecified; E11.22 Type 2 diabetes mellitus with diabetic chronic kidney disease; D64.9 Anemia, unspecified; I65.22 Occlusion and stenosis of left carotid artery; Z20.828 Contact with and (suspected) exposure to other viral communicable diseases; Z99.2 Dependence on renal dialysis; Z79.899 Other long term (current) drug therapy; Z79.82 Long term (current) use of aspirin

== ENCOUNTER 2020-05-29 12:24 | Inpatient (IN) | payer OTHER ==
[~2020-05-29] VITALS: Ht 170.2 cm; Wt 65.3 kg
[~2020-05-29 12:24] MED LIST changes: +PERCOCET 5-3251 EACH PO
[2020-05-29 18:20] VITALS: BP 147/85
[2020-05-29 18:58] VITALS: BP 147/85
[2020-05-29 19:50] VITALS: BP 104/68
[2020-05-30 04:20] LABS: HEMATOCRIT 40.9 % (42.0-52.0); HEMOGLOBIN 13.8 gm/dL (14.0-18.0); MCH 31.6 pg (26.0-34.0); MCHC 33.8 g/dL (28.0-37.0); MCV 93.6 fL (80.0-100.0); MPV 7.2 fl. (7.2-11.1); RBC 4.37 mil/uL (4.50-6.00); RDW-CV 13.7 % (10.5-14.5); WBC 5.5 thou/uL (4.0-11.0)
[2020-05-30 04:39] LABS: CALCIUM 9.1 mg/dL (8.5-10.1); CREATININE 5.9 mg/dL (0.6-1.3)
[2020-05-30 07:00] VITALS: BP 141/88
[2020-05-30 13:04] VITALS: BP 131/76
[2020-05-30 17:30] VITALS: BP 144/84
[2020-05-30 19:55] VITALS: BP 145/74
[2020-05-31 07:50] VITALS: BP 132/75
[2020-05-31 13:03] VITALS: BP 116/76
[2020-05-31 16:55] VITALS: BP 157/67
[2020-05-31 19:55] VITALS: BP 173/92
[2020-06-01 07:30] VITALS: BP 136/76
[2020-06-01 13:10] VITALS: BP 111/72
[2020-06-01 17:44] VITALS: BP 140/80
[2020-06-01 19:30] VITALS: BP 164/86
[2020-06-02 04:51] LABS: HEMATOCRIT 35.2 % (42.0-52.0); HEMOGLOBIN 12.1 gm/dL (14.0-18.0); MCHC 34.3 g/dL (28.0-37.0); MCV 93.4 fL (80.0-100.0); MPV 7.5 fl. (7.2-11.1); RBC 3.77 mil/uL (4.50-6.00); RDW-CV 14.2 % (10.5-14.5); WBC 5.7 thou/uL (4.0-11.0)
[2020-06-02 05:08] LABS: ALBUMIN 3.5 g/dL (3.4-5.0); CALCIUM 8.8 mg/dL (8.5-10.1); MAGNESIUM 1.8 mg/dL (1.8-2.4); PHOSPHORUS* 2.2 mg/dL (2.5-4.9); POTASSIUM 5.1 mmol/L (3.5-5.1)
[2020-06-02 05:16] LABS: CREATININE 10.1 mg/dL (0.6-1.3)
[2020-06-02 07:54] VITALS: BP 135/74
[2020-06-02 21:55] VITALS: BP 154/86
[2020-06-03 07:00] VITALS: BP 120/66
[2020-06-03 19:00] VITALS: BP 112/67
[2020-06-03 22:06] LABS: HEPATITIS B SURFACE AG Negative (Negative)
[2020-06-04 11:05] LABS: ABSOLUTE BASOPHILS 0.1 thou/uL (0.0-0.2); ABSOLUTE EOSINOPHILS 0.2 thou/uL (0.0-0.7); ABSOLUTE LYMPHOCYTES 1.5 thou/uL (0.8-5.3); ABSOLUTE MONOCYTES 0.5 thou/uL (0.0-1.2); ABSOLUTE NEUTROPHILS 4.7 thou/uL (1.6-8.1); BASOPHILS 1.2 %; EOSINOPHILS 2.8 %; HEMATOCRIT 36.8 % (42.0-52.0); HEMOGLOBIN 12.3 gm/dL (14.0-18.0); MCH 31.8 pg (26.0-34.0); MCHC 33.5 g/dL (28.0-37.0); MONOCYTES 7.7 %; MPV 7.1 fl. (7.2-11.1); NUCLEATED RBCS 0 /100WBC; PLATELET COUNT* 274 thou/uL (150-400); POLYS 67.3 %; RBC 3.87 mil/uL (4.50-6.00); RDW-CV 13.8 % (10.5-14.5)
[2020-06-04 11:19] LABS: ALBUMIN 3.7 g/dL (3.4-5.0); CALCIUM 8.5 mg/dL (8.5-10.1); POTASSIUM 4.3 mmol/L (3.5-5.1); TOTAL BILIRUBIN 0.3 mg/dL (<0.1-1.0); TOTAL PROTEIN 7.6 g/dL (6.4-8.2)
[2020-06-04 11:23] LABS: CREATININE 5.5 mg/dL (0.6-1.3)
--- NOTE | 2020-06-04 16:18 | EKG ---
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: : 1945 Requested By: Nate Boyer Order Number: [id number] MD: Wilian Iqbal Measurements Intervals [employer] Rate: 87 P: NV: QRS: -54 QRSD: 87 T: 75 QT: 402 QTc: 484 Interpretive Statements Accelerated junctional rhythm Left anterior fascicular block Anteroseptal infarct, old possible Compared to ECG 05/25/2020 09:00:53 Accelerated junctional rhythm now present Sinus rhythm no longer present Prolonged QT interval no longer present Myocardial infarct finding still present Electronically Signed On 06-04-2020 16:18:03 CDT by Wilian Iqbal [email or web address] <ELECTRONICALLY SIGNED> By: Wilian Iqbal MD, [facility] 06/04/20 1618 9 9 Wilian Iqbal MD, [facility] /EPI
[2020-06-05] MEDS ORDERED: CLOPIDOGREL75 MG PO (13:34)
== END 2020-06-04 09:45 | disposition home health service (06) | DRG 64 ==
LOC: M.REH 12:24
PROVIDERS: Family Medicine; Internal Medicine; ADMIT Physical Medicine & Rehabilitation; ATTEND Physical Medicine & Rehabilitation
PROC: 5A1D70Z Performance of Urinary Filtration, Intermittent, Less than 6 Hours Per Day (ICD-10-PCS; principal; 2020-06-02)
PROC: 5A1D70Z Performance of Urinary Filtration, Intermittent, Less than 6 Hours Per Day (ICD-10-PCS; 2020-06-03)
DX: I63.89 Other cerebral infarction (principal); G93.41 Metabolic encephalopathy; N18.6 End stage renal disease; N39.0 Urinary tract infection, site not specified; I12.0 Hypertensive chronic kidney disease with stage 5 chronic kidney disease or end stage renal disease; E78.5 Hyperlipidemia, unspecified; E03.9 Hypothyroidism, unspecified; F32.9 Major depressive disorder, single episode, unspecified; E87.5 Hyperkalemia; R13.10 Dysphagia, unspecified; D64.9 Anemia, unspecified; Z82.49 Family history of ischemic heart disease and other diseases of the circulatory system; Z79.82 Long term (current) use of aspirin; Z79.899 Other long term (current) drug therapy; Z28.21 Immunization not carried out because of patient refusal; Z99.2 Dependence on renal dialysis

== ENCOUNTER 2020-06-04 09:30 | Inpatient (IN) | payer OTHER ==
[2020-06-04] VITALS (9 sets, daily range): BP systolic 81–145; BP diastolic 52–83
[~2020-06-04] VITALS: Ht 170.2 cm; Wt 59.4 kg
[2020-06-05 03:25] LABS: HEMATOCRIT 37.1 % (42.0-52.0); HEMOGLOBIN 12.8 gm/dL (14.0-18.0); MCH 32.3 pg (26.0-34.0); MCHC 34.4 g/dL (28.0-37.0); MCV 93.9 fL (80.0-100.0); MPV 7.1 fl. (7.2-11.1); RBC 3.95 mil/uL (4.50-6.00); RDW-CV 14.1 % (10.5-14.5)
[2020-06-05 03:48] LABS: ALBUMIN 3.7 g/dL (3.4-5.0); CALCIUM 8.7 mg/dL (8.5-10.1); MAGNESIUM 1.6 mg/dL (1.8-2.4); POTASSIUM 4.4 mmol/L (3.5-5.1); TOTAL BILIRUBIN 0.3 mg/dL (<0.1-1.0); TOTAL PROTEIN 7.7 g/dL (6.4-8.2)
[2020-06-05 04:05] VITALS: BP 125/59
[2020-06-05 04:12] LABS: CREATININE 7.4 mg/dL (0.6-1.3)
[2020-06-05 13:07] VITALS: BP 125/59
[2020-06-05] MEDS ORDERED: CLOPIDOGREL75 MG PO (13:34)
[2020-06-05 14:11] VITALS: BP 125/59
== END 2020-06-05 14:46 | disposition home health service (06) | DRG 69 ==
LOC: M.ICU 09:30 → M.2W 09:47 → M.ICU 11:16
PROVIDERS: ADMIT Family Medicine; ATTEND Family Medicine
DX: G45.9 Transient cerebral ischemic attack, unspecified (principal); N18.6 End stage renal disease; G93.41 Metabolic encephalopathy; I12.0 Hypertensive chronic kidney disease with stage 5 chronic kidney disease or end stage renal disease; E78.5 Hyperlipidemia, unspecified; E03.9 Hypothyroidism, unspecified; K21.9 Gastro-esophageal reflux disease without esophagitis; F32.9 Major depressive disorder, single episode, unspecified; E87.5 Hyperkalemia; R13.10 Dysphagia, unspecified; D64.9 Anemia, unspecified; E11.22 Type 2 diabetes mellitus with diabetic chronic kidney disease; H54.62 Unqualified visual loss, left eye, normal vision right eye; I44.1 Atrioventricular block, second degree; Z82.49 Family history of ischemic heart disease and other diseases of the circulatory system; Z86.73 Personal history of transient ischemic attack (TIA), and cerebral infarction without residual deficits; Z79.899 Other long term (current) drug therapy; Z66 Do not resuscitate

== ENCOUNTER → 2021-09-21 | Outpatient (CLI) | payer OTHER ==
[~2021-09-21] MED LIST changes: +CLOPIDOGREL75 MG PO
--- NOTE | 2021-09-21 14:35 | CARDNUC ---
[place] [address] CARDIAC NUCLEAR IMAGING REPORT Name: NOHELIA RIVERA Room: [facility]#: [id number] Admission: 09/21/21 Attend Phys: Paulo Hernandez, Discharge: Date of : 47 Date of Service: 09/21/21 1435 Report #: [id number] THIS REPORT FOR: cc: Chintan Leone Russell J. DO Liston,Paulo Puga MD [facility] ~ APPROVED REPORT Imaging Protocol: Rest Tc-99m/Stress Tc-99m 1 day Study performed: 09/21/2021 08:30:00 Indication: Dyspnea Patient Location: Out-Patient Stress Tech: jared crane Stress Nurse: Yadira Santos RN NM Tech:TORRIE Acosta Ht: 5 ft 7 in Wt: 147 lbs BSA: 1.77 m2 BMI: 23.02 Medical History Medical History: CKD, HTN, Hyperlipidemia Medications: asa, Aspirin atprvastatin, clopidogrel, nifedipine Allergies: No known drug allergies Cardiac Risk Factors: Age, Hyperlipidemia, HTN Exercise History: Sedentary Resting Data Rest SPECT myocardial perfusion imaging was performed in supine position 30 minutes following the intravenous injection of 9.4 mCi of Tc-99m Sestamibi. Time of rest injection: 0840 Date: 09/21/2021 The images were gated to evaluate regional wall motion and calculate left ventricular ejection fraction. Administration Route: IV Administration Site: Right Wrist Pharmacologic Stress Pharmacologic stress test was performed by injecting Regadenoson 0.4 mg IV push over 10-15 seconds immediately followed by the intravenous injection of 32.7 mCi of Tc-99m Sestamibi. Time of stress injection: 949 Date: 09/21/2021 Administration Route: [place] [address] CARDIAC NUCLEAR IMAGING REPORT Name: NOHELIA RIVERA Room: [facility] EVA Quinones#: [id number] Admission: 09/21/21 Attend Phys: Paulo Hernandez, Discharge: Date of : 47 Date of Service: 09/21/21 1435 Report #: [id number] Administration Site: Right Wrist Gated Stress SPECT was performed 40 minutes after stress injection. The images were gated to evaluate regional wall motion and calculate left ventricular ejection fraction. Stress only was performed in the Supine position. Stress Test Details Stress Test: Pharmacologic stress testing performed using 0.4 mg of regadenoson per 5 mL given IV over 10 seconds. Reason for pharmacologic stress test: physical limitation. 60 mg caffeine given for dyspnea. HR Max Heart Rate (APMHR): 146 bpm Resting HR: 80 bpm Target HR (85% APMHR): 124 bpm Max HR Achieved: 89 bpm % of APMHR: 60 Recovery HR: 69 bpm BP Resting BP: 218/106 mmHg Max BP: 236/80 mmHg Recovery BP: 206/85 mmHg ECG Resting ECG: Sinus Rhythm Stress ECG: Sinus Rhythm ST Change: None Arrhythmia: None Recovery ECG: Sinus Rhythm Recovery ST Change: None Recovery Arrhythmia: None Clinical Reason for Termination: Completed protocol The patient tolerated Lexiscan infusion without significant cardiac complaint. Nurse Comments patients bp returned to starting point but it is still high, Dr Hernandez consulted and suggested that the patient go home. patient advised to go home and rest and recheck his bp at home, if stilll high he was advised to calll his family doctor or go to the ed Stress ECG Conclusion The baseline twelve-lead EKG shows sinus rhythm with first-degree AV block. There were no significant ST [place] [address] CARDIAC NUCLEAR IMAGING REPORT Name: NOHELIA RIVERA Room: [facility]#: [id number] Admission: 09/21/21 Attend Phys: Paulo Hernandez, Discharge: Date of : 47 Date of Service: 09/21/21 1435 Report #: [id number] obtained during and post Lexiscan infusion show sinus rhythm with no significant ST segment changes. There were no stress-induced arrhythmias. Study Quality Study: Good Artifact: Mild Diaphragmatic artifact Study Data At rest, the left ventricular ejection fraction was 73%.. Post stress, the left ventricular ejection was 68%.. TID = 1.07. Perfusion Perfusion images obtained at rest show mild photopenia of the inferior wall. Perfusion images obtained post Lexiscan stress show near complete resolution of the inferior wall photopenia suggesting diaphragmatic attenuation artifact. No other significant fixed or reversible defects are identified. Wall Motion Normal left ventricular wall motion. Nuclear Conclusion ECG Findings: negative for ischemia Clinical Findings: negative for ischemia Nuclear Findings: negative for ischemia Exercise Capacity: not assessed Left Ventricular Function: normal Risk Study: low Perfusion images show no defect to suggest infarct or ischemia. Left ventricular systolic function is normal on gated studies. This is a low risk study. <Conclusion> The baseline twelve-lead EKG shows sinus rhythm with first-degree AV block. There were no significant ST segment abnormalities. EKGs obtained during and post Lexiscan infusion show sinus rhythm with no significant ST segment changes. There were no stress-induced arrhythmias. <ELECTRONICALLY SIGNED> By: Paulo Hernandez MD, FACC 09/21/21 1435 1435 1435 Paulo Hernandez MD, FACC /INF
== END ==
LOC: M.NUC 09-08 08:00 → M.CRD 09-08 08:00 → M.NUC 08:00
PROVIDERS: ATTEND Internal Medicine Cardiovascular Disease
DX: R06.00 Dyspnea, unspecified (principal)